=== PATIENT | male | born 1935 ===

== ENCOUNTER 2019-09-19 05:27 | Emergency (ER) | payer OTHER ==
[~2019-09-19] VITALS: Ht 172.7 cm; Wt 87.1 kg
[~2019-09-19 05:27] MED LIST: CEFADROXIL500 MG PO; HYZAAR 100-121 UDTAB PO; LISINOPRIL-HCTZ1 TA1 PO; PERCOCET 5/3251 TAB PO; TOBRADEX EYE O3.5 GM OP; XARELTO1 EACH PO
== END 2019-09-19 13:10 | disposition home or self-care (01) ==
LOC: ER 05:27 → CPU-OBS 05:41 → ER 05:41
DX: I16.0 Hypertensive urgency (principal); I10 Essential (primary) hypertension